=== PATIENT | male | born 1955 | race Caucasian/White ===

== ENCOUNTER 2016-09-07 08:00 | Observation (INO) ==
--- NOTE | 2016-09-07 08:14 | Cardiology History & Physical ---
History of Present Illness Chief complaint: palpitations HPI: Papa is a 61 year old male who is known to Dr. Dickson with a history of frequent PVCs, HTN and HLD. He was seen yesterday in the office and was scheduled for anti-arrhythmic therapy today on Flecainide. Review of Systems - Constitutional Constitutional: Absent: chills, fatigue, fever(s) - EENMT Eyes: Absent: change in vision Balance: Absent: vertigo Mouth/Throat: Absent: sore throat - Cardiovascular Cardiovascular: Present: palpitations. Absent: chest pain, syncope, dyspnea on exertion, orthopnea, heart murmur Vascular: Absent: pedal edema - Respiratory Respiratory: Absent: cough, dyspnea - Gastrointestinal Gastrointestinal: Absent: diarrhea, nausea, vomiting - Genitourinary Genitourinary: Absent: dysuria - Integumentary/Breasts Integumentary: Absent: rash - Neurological Neurological: Absent: dizziness PFSH Patient Stated Medical History Cardiac Arrhythmia Yes Hypertension Yes Chronic Obstructive Pulmonary Yes Disease (COPD) Hepatitis Yes: 1990 Ulcer Yes Hx Benign Prostatic Yes Hyperplasia Surgical History: Right hand surgery Family History: [place]- Mother and father Cancer- Mother, lung Sister, unknown - Social History Smoking status: Heavy tobacco smoker packs per day: 1 Substance use type: does not use Alcohol intake frequency: 3 or more drinks per day Last drink: hours (ago) Medications Home Medications Medication Instructions Recorded Confirmed Type Amlodipine Besylate 10 mg PO DAILY #0 tab 04/21/16 09/07/16 History Aspirin 1 tab PO DAILY #30 tab 04/21/16 09/07/16 History Metoprolol Succinate 25 mg PO DAILY #0 tab 04/21/16 09/07/16 History Atorvastatin [Lipitor] 1 tab PO DAILY 09/06/16 09/07/16 History Nitroglycerin 0.4 mg SL Q5MIN3 09/07/16 09/07/16 History Triamterene/Hctz 37.5/25 Tab 1 tab PO DAILY 09/07/16 09/07/16 History [MAXZIDE-25 eqv] Allergies Allergy/AdvReac Type Severity Reaction Status Date / Time No Known Allergies Allergy Verified 09/07/16 11:15 Exam - Constitutional no acute distress, cooperative - Routine HEENT Exam Head: Present: normocephalic Nose: moist mucous membranes - Routine Neck Exam Absent: JVD, carotid bruit - Routine Chest/Breast/Axilla Exam Chest wall: Absent: tenderness - Routine Respiratory Exam Present: CTA bilaterally. Absent: rales, wheezes - Routine Cardiovascular Exam Present: no murmur, irregular rhythm. Absent: JVD - Routine Abdominal Exam Present: soft, normoactive bowel sounds - Routine Extremities Exam Present: no edema - Routine Skin Exam Present: intact, dry, warm - Routine Neurological Exam Present: alert, oriented X3 - Routine Psychiatric Exam Present: normal affect, normal thought process Results 09/07/16 08:48 09/07/16 08:48 Laboratory Results - last 72 hr 09/07/16 09/07/16 08:48 08:48 WBC 5.8 RBC 4.75 Hgb 15.4 Hct 45.6 MCV 96.0 MCH 32.4 MCHC 33.8 RDW Std Deviation 43.6 Plt Count 178 MPV 10.5 Immature Gran % (Auto) 0.0 Neut % (Auto) 63.8 Lymph % (Auto) 20.1 L [place] % (Auto) 12.8 H Eos % (Auto) 2.6 Baso % (Auto) 0.7 Neut # 3.7 Lymph # 1.2 [place] # 0.7 Eos # 0.2 Baso # 0.0 Abs Immat Gran (auto) 0.00 Turbidity < 20 Sodium 141 Potassium 4.1 Chloride 105 Carbon Dioxide 27 Anion Gap 9 BUN 14.0 Creatinine 0.8 GFR Calculation 99 BUN/Creatinine Ratio 18 Glucose 82 Calculated Osmolality 271 Calcium 9.9 Magnesium 2.4 H Total Bilirubin 0.60 Icterus Index < 2 AST 31 ALT 35 Alkaline Phosphatase 73 Total Protein 7.5 Albumin 4.8 Globulin 2.7 Albumin/Globulin Ratio 1.8 TSH 0.74 Specimen Hemolysis < 15 - Imaging and Cardiology EKG results: image reviewed - EKG Interpretation EKG: sinus rhythm EKG shows: bradycardia Hospital Course This is a general summary of the patient's hospital course. For more details refer to the complete medical record. Assessment and Plan (1) Ventricular premature depolarization Current visit: Yes Status: Acute Has frequent PVCs. Admit to observation for anti-arrhythmic therapy. Will start on Flecainide 50mg po BID. Monitor cardiac telemetry, repeat EKG in the morning (2) Essential (primary) hypertension Current visit: Yes Status: Chronic Suboptimal control, started on Maxzide 37.5/25mg daily on 09/06/16 with BMPand Mag in 1 week. Patient instructed to take and record BP and bring to next appointment. (3) Mixed hyperlipidemia Current visit: Yes Status: Chronic Takes Atorvastatin, PCP manages - Attestation Attestation Narrative: 09/07/16 13:49 Recommendation After examining the patient I agree with the above assessment. I am involved in the formulation of the patient's plan of care.
[2016-09-07] MEDS ORDERED: PNEUMOCOCCAL 13 VACCINE 0.5ml INJECTION IM ONE (10:00)
[2016-09-07] MEDS: FLECAINIDE 50 MG TABLET PO SCH ×2 (10:24→21:28)
[2016-09-07] MEDS ORDERED: PNEUMOCOCCAL VAC ADMIN CHARGE INJ ONE (11:13)
[2016-09-07] MEDS ORDERED: NITROGLYCERIN 0.4 MG SUBLINGUAL TABLET SL SCH (13:30)
[2016-09-07] MEDS ORDERED: SALINE FLUSH 10ml SYRINGE IVF PRN (16:38)
[2016-09-08 07:33] VITALS: RESP 16; TEMP 96
[2016-09-08] MEDS ORDERED: METOPROLOL SUCCINATE 25 MG PO SCH (09:00)
[2016-09-08] MEDS ORDERED: ASPIRIN 81 MG CHEWABLE TABLET PO SCH (09:00)
[2016-09-08] MEDS ORDERED: --POM--AMLODIPINE 10 MG TABLET PO SCH (09:00)
[2016-09-08] MEDS ORDERED: HCTZ PO SCH (09:00)
[2016-09-08] MEDS ORDERED: TRIAMTERENE PO SCH (09:00)
[2016-09-08] MEDS: FLECAINIDE 50 MG TABLET PO SCH (09:11)
[2016-09-08 11:51] VITALS: BMI 17.3
[2016-09-08 12:30] VITALS: BP 130/78; PULSE 69; O2SAT 99
--- NOTE | 2016-09-08 17:44 | Discharge Summary ---
<Batool Barrett R - Last Filed: 09/09/16 15:45> Discharge Information Date of admission: 09/07/16 07:50 Anticipated date of discharge: 09/08/16 Attending Physician: Lyndon Dickson MD Primary care physician: Nilesh Vogel MD Consults: None - Discharge Diagnosis (1) Essential (primary) hypertension Problem Details: Stable. Resume home meds and take BP journal to next appointment as instructed. Status: Chronic (2) Mixed hyperlipidemia Problem Details: Resume ASA and statin. Status: Chronic (3) Ventricular premature depolarization Problem Details: Remains NSR. Will d/c home on BID flecainide. F/u in office . Status: Acute - Laboratory Labs: 09/07/16 08:48 09/08/16 04:06 History of Present Illness HPI: Papa is a 61 year old male who is known to Dr. Dickson with a history of frequent PVCs, HTN and HLD. He was seen yesterday in the office and was scheduled for anti-arrhythmic therapy today on Flecainide. Hospital Course This is a general summary of the patient's hospital course. For more details refer to the complete medical record. Time spent with patient: less than 15 minutes Exam Vital signs: Temperature 96 F L 09/08/16 07:33 Pulse Rate 69 09/08/16 12:29 Respiratory Rate 16 09/08/16 07:33 Blood Pressure 130/78 09/08/16 12:29 Pulse Oximetry 99 09/08/16 12:29 Oxygen Delivery Method Room Air Narrative: Patient states he is doing well today and is ready to go home. Notified by RN that HR still 49 this AM and did not give BB. EKG showed SB in the 40's. Pt states he has not had any light-headed/dizziness, denies any CONCEPCION, CP and/or diaphoresis. Continued to hold BB and HR improved martin the 60's. - Constitutional no acute distress, thin, cooperative - Routine HEENT Exam Head: Present: normocephalic Eye: Present: EOMI ENT: Present: mucous membranes moist Nose: moist mucous membranes - Routine Neck Exam Absent: JVD, carotid bruit, lymphadenopathy - Routine Respiratory Exam Present: CTA bilaterally. Absent: dyspnea, wheezes - Routine Cardiovascular Exam Present: RRR. Absent: murmur, gallop, rubs, JVD - Routine Abdominal Exam Present: soft, normoactive bowel sounds, non distended - Routine Extremities Exam Present: no edema, pulses intact - Routine Skin Exam Present: intact, dry, warm. Absent: wounds, rash - Routine Neurological Exam Present: alert, oriented X3 - Routine Psychiatric Exam Present: normal affect, normal thought process, cooperative Results 09/07/16 08:48 09/08/16 04:06 Comprehensive Metabolic Panel 09/08/16 Range/Units 04:06 Sodium 138 (134-144) MEQ/L Potassium 3.7 (3.6-5) MEQ/L Chloride 104 (98-107) MEQ/L Carbon Dioxide 26 (22-30) MEQ/L BUN 18.0 (9-20) MG/DL Creatinine 0.8 (0.8-1.5) MG/DL Glucose 89 (75-110) MG/DL Calcium 9.8 (8.4-10.2) MG/DL Intake and Output 09/08/16 09/08/16 09/08/16 06:59 14:59 22:59 Intake Total 900 / 900 Output Total 300 / 300 1100 / 1100 Balance -300 / -300 900 / 900 -1100 / -1100 Intake: Oral 900 / 900 Output: Urine 300 / 300 1100 / 1100 Other: Weight 54.3 kg Patient Weight 09/09/16 06:59 Weight 54.3 kg - Imaging and Cardiology EKG results: report reviewed - EKG Interpretation EKG shows: bradycardia, sinus rhythm Discharge Plan - Med Rec/Dispo Referrals/Follow Up: Lyndon Dickson MD [Physician] - 09/13/16 [place] Instructions: Flecainide (By mouth) Additional Instructions: Follow appointment for the as scheduled. Prescriptions: New Flecainide [Tambocor] 50 mg PO BID #60 tablet Continue Amlodipine Besylate 10 mg PO DAILY #0 tab Atorvastatin [Lipitor] 1 tab PO DAILY Triamterene/Hctz 37.5/25 Tab [MAXZIDE-25 eqv] 1 tab PO DAILY Aspirin 1 tab PO DAILY #30 tab Nitroglycerin 0.4 mg SL Q5MIN3 #25 tab.subl Discontinued Metoprolol Succinate 25 mg PO DAILY #0 tab Discharge Instructions/Outpatient Orders: Final Provider Discharge Instructions Location: Determined By Patient - Disposition 01 Discharged Home, Self-Care <RandolphLyndon - Last Filed: 09/13/16 09:43> Discharge Information Date of admission: 09/07/16 07:50 Attending Physician: Lyndon Dickson MD Primary care physician: Nilesh Vogel MD - Discharge Diagnosis (1) Essential (primary) hypertension Problem Details: Stable. Resume home meds and take BP journal to next appointment as instructed. Status: Chronic (2) Mixed hyperlipidemia Problem Details: Resume ASA and statin. Status: Chronic (3) Ventricular premature depolarization Problem Details: Remains NSR. Will d/c home on BID flecainide. F/u in office . Status: Acute - Laboratory Labs: 09/07/16 08:48 09/08/16 04:06 Hospital Course This is a general summary of the patient's hospital course. For more details refer to the complete medical record. Exam Vital signs: Temperature 96 F L 09/08/16 07:33 Pulse Rate 69 09/08/16 12:29 Respiratory Rate 16 09/08/16 07:33 Blood Pressure 130/78 09/08/16 12:29 Pulse Oximetry 99 09/08/16 12:29 Oxygen Delivery Method Room Air Results 09/07/16 08:48 09/08/16 04:06 Discharge Plan - Med Rec/Dispo - Attestation Attestation Narrative: 09/13/16 09:43 Recommendation After examining the patient I agree with the above assessment. I am involved in the formulation of the patient's plan of care. Addendum entered and electronically signed by Batool Barrett APRN 09/09/16 16: 09: Addendum entered and electronically signed by Batool Barrett APRN 09/12/16 10: 10: EKG QT/Qtc = 425/404
[2016-09-08] MEDS ORDERED: FLECAINIDE 50 MG TABLET PO ONE (19:10)
[2016-09-08] MEDS ORDERED: --POM--ATORVASTATIN 10 MG TABLET PO SCH (22:00)
== END 2016-09-08 19:15 | disposition home or self-care (01) ==
LOC: SRG
PROVIDERS: ADMIT Internal Medicine Cardiovascular Disease; ATTEND Internal Medicine Cardiovascular Disease